=== PATIENT | male | born 1940 | race Caucasian/White ===

== ENCOUNTER → 2016-06-20 | Outpatient (CLI) | payer OTHER | LOC: FIMAGING 15:38 | PROVIDERS: ATTEND Emergency Medicine | DX: M25.552 Pain in left hip (principal); M79.605 Pain in left leg; M54.5 Low back pain ==

== ENCOUNTER 2017-03-11 08:38 | Emergency (ER) | payer OTHER ==
[2017-03-11 08:46] VITALS: TEMP 97.5
[2017-03-11] MEDS ORDERED: COCAINE HCL 4% 4 ML BTL TP ONE ×2 (08:51→08:52)
[2017-03-11] MEDS ORDERED: SILVER NITRATE APPLICATOR 1 APPL TP ONE ×2 (08:51→08:54)
[2017-03-11 09:11] LABS: % IMMATURE GRANULYOCYTES 0.2 % (0.0-1.1); ABSOLUTE IMMATURE GRANULOCYTES 0.01 10^3/uL (0.00-0.10); ADD DIFF? NO; ADD MORPH? NO; ADD SCAN? NO; ATYPICAL LYMPHOCYTE FLAG 0 (0-99); FRAGMENT RBC FLAG 0 (0-99); HEMATOCRIT 45.2 % (40.0-51.0); HEMOGLOBIN 15.9 g/dL (13.7-17.5); LEFT SHIFT FLG 0 (0-99); LIPEMIA HEMOLYSIS FLAG 90 (0-99); MEAN CELL HEMOGLOBIN 30.3 pg (27.9-34.1); MEAN CELL HEMOGLOBIN CONCENTR. 35.2 g/dL (32.4-36.7); MEAN CELL VOLUME 86.1 fL (81.5-99.8); MEAN PLATELET VOLUME 9.5 fL (8.7-11.7); PLATELET CLUMPS FLAG 10 (0-99); PLATELET COUNT 205 10^3/uL (150-400); RED BLOOD CELL COUNT 5.25 10^6/uL (4.40-6.38); RED CELL DISTRIBUTION WIDTH 15.7 % (11.5-15.2)
[2017-03-11 09:19] LABS: INR 1.01 (0.83-1.16); PROTIME(PATIENT) 13.5 SEC (12.0-15.0)
[2017-03-11 09:20] LABS: APTT 30.1 SEC (23.0-38.0)
--- NOTE | 2017-03-11 09:26 | EDPHY ---
H & P Stated Complaint: NOSE BLEED Source: Patient, Family (White) - Personal History Current Tetanus/Diphtheria Vaccine: Unsure Tetanus Vaccine Date: WITHIN LAST 5 YEARS - Medical/Surgical History Hx Asthma: No Hx Chronic Respiratory Disease: Yes Hx Diabetes: No Hx Cardiac Disease: Yes Hx Renal Disease: Yes Hx Cirrhosis: No Hx Alcoholism: No Hx HIV/AIDS: No Hx Splenectomy or Spleen Trauma: No Other PMH: als,htn,hypothyroid,gout, stents. afib, renal insufficiency,daniel, home 02,renal stents. - Social History Smoking Status: Never smoked HPI/ROS: HPI: This is a 76-year-old male presents with Chief Complaint: Nosebleed Location: Nose Quality: Bleeding Duration: Last night Signs and Symptoms: No digital trauma, + nasal mucosal dryness, no sneezing, no nasal congestion, no sinus pressure, no headache, no dizziness, no shortness of breath, no chest pain Timing: waxes and wane Severity: Moderate Context: Patient has a history of atrial fibrillation on aspirin and Plavix as well as DANIEL on home oxygen but denies using the machine last night presents with sudden onset, last night of right nare nose bleed that lasted approximately 30 min. Patient reports that put a humidified by the bed. He left approximately 8-10 hours without this is no lead reoccurring. While he was a shower this morning he had spontaneous reoccurrence of right nose bleed that was moderate in nature, and unable to be stopped with direct pressure. The bleeding lasted for over an hour so called EMS. EMS placed packing into bilateral nares and placed a nose clip for direct pressure. Upon arrival patient is complaining of drainage of blood in the back of his throat. He denies any digital trauma, headache, dizziness, shortness of breath, palpitations, chest. This is 1st episode of epistaxis. Denies easy bruising, petechiae. Modifying Factors: Direct pressure nasal packing by EMS Comment: ROS: see HPI Constitutional: No fever, no chills, no weight loss Eyes: No blurred vision Respiratory: No shortness of breath, no cough Cardiovascular: No chest pain Gastrointestinal: No nausea, no vomiting, no diarrhea Genitourinary: No dysuria Extremities: No myalgias Neurologic: No weakness, no numbness Skin: No rashes Hematologic: No bruising, + bleeding MEDICAL/SURGICAL/SOCIAL HISTORY: Medical/surgical history: als, htn, hypothyroid,gout, stents afib, renal insufficiency,daniel, home 02,renal stents. Social history: . Retired. CONSTITUTIONAL: Pleasant elderly white male, awake and alert, no obvious distress HEENT: Atraumatic and normocephalic, PERRL, EOMI. Tympanic membranes clear. Right nare: Unable to visualize mucosal berger due to bleeding. Left nare: Dried blood clot noted but no active bleeding. Posterior pharynx shows large clot. Oropharynx clear, no exudate and moist pink mucosa. Airway patent. No lymphadenopathy. No meningismus. Cardiovascular: Normal S1/S2, irregular rate, regular rhythm, without murmur rub or gallop. PULMONARY/CHEST: Symmetrical and nontender. Clear to auscultation bilaterally. Good air movement. No accessory muscle usage. ABDOMEN: Soft, nondistended, nontender, no rebound, no guarding, no peritoneal signs, no masses or organomegaly. No CVAT. EXTREMITIES: 2/2 pulses, strength 5/5, no deformities, no clubbing, no cyanosis or edema. NEUROLOGICAL: no focal neuro deficits. GCS 15. Speech clear. Ambulation and balance impaired chronically secondary to ALS. SKIN: Warm and dry, no erythema. no rash. Good capillary refill. (Sabine Feliciano) Constitutional: Initial Vital Signs Temperature (C) 36.4 C 03/11/17 08:42 Heart Rate 64 03/11/17 08:42 Respiratory Rate 16 03/11/17 08:42 Blood Pressure 163/70 H 03/11/17 08:42 O2 Sat (%) 90 L 03/11/17 08:42 O2 Delivery Mode Room Air Allergies/Adverse Reactions: No Known Allergies Allergy (Unverified 05/10/13 18:38) Home Medications: Medication Instructions Recorded Allopurinol [Allopurinol 300 MG 300 mg PO DAILY 11/30/12 (RX)] Aspirin [Aspirin 81mg (OTC)] 81 mg PO DAILY 11/30/12 Atorvastatin Calcium [Lipitor] 40 mg PO HS 11/30/12 Clopidogrel Bisulfate [Plavix (RX)] 75 mg PO DAILY 11/30/12 Furosemide [Lasix] 40 mg PO DAILY 11/30/12 Levothyroxine [Synthroid 112 mcg 112 mcg PO DAILY06 11/30/12 (RX)] Metoprolol Tartrate [Lopressor] 50 mg PO BID 11/30/12 Spironolactone [Aldactone 25 MG 25 mg PO BID@08,18 11/30/12 (RX)] Minoxidil [Minoxidil 10 mg (RX)] 20 mg PO DAILY 05/10/13 Minoxidil [Minoxidil 10 mg (RX)] 30 mg PO DAILY@1800 05/10/13 Testosterone IM [Testosterone 100 mg IM Q14D 05/10/13 100mg/ml IM inj (RX)] Testosterone [Androderm] 2 patch TP DAILY PRN 05/10/13 Medical Decision Making Procedures: Procedure: Epistaxis control. After verbal consent was obtained, the patient was not anesthetized. The anterior epistaxis was identified in the right Spencer. The patient was treated with cocaine and right rhino rocket with syringe filled to 5 mL. Approximately 1 hr later following the procedure, the patient was re-examined and the bleeding was well controlled. The patient tolerated the procedure well. The procedure was performed by myself. (Sabine Feliciano) ED Course/Re-evaluation: I discussed evaluated this patient with Sabine Feliciano This patient is on 2 antiplatelet agents. He has had intermittent nosebleeds since yesterday. After instilling cocaine solution and applying cauterization the bleeding has stopped. Will continue to observe the patient. If we need to will use rhino rocket. (Raj Lao) Labs, packing, chemical cauterization. Labs reviewed and show no significant anemia, coagulopathy. Packing was removed from left and right nare. Unable to visualize source of bleeding. Suction used to no avail. Cocaine was placed. Then rhino rocket was placed in the right nare intervention fill to 5 mL with immediate cessation of bleeding. Large clot noted on posterior pharynx was cleared with suction. Patient was able to rinse mouth with water and then drink ice cold water without difficulty. Patient closely monitored for 5 min without recurrence of posterior pharynx bleeding. Patient monitored for almost 4 hours in the emergency room; with resolution of bleeding. Patient stood up and denies dizziness, shortness of breath, chest pain. This patient was seen under the supervision of my secondary supervising physician. I evaluated care for this patient independently. Patient's presentation, labs/imaging, treatment and plan of care were discussed with secondary supervising physician. (Sabine Feliciano) Differential Diagnosis: Differential diagnosis includes but is not limited to nasal dryness due to home oxygen use, coagulopathy, nasal tumor, arteriovenous malformation. (Sabine Feliciano) - Data Points Laboratory Results: Laboratory Results 03/11/17 09:00 03/11/17 03/11/17 09:00 09:00 WBC 5.14 10^3/uL 10^3/uL (3.80-9.50) RBC 5.25 10^6/uL 10^6/uL (4.40-6.38) Hgb 15.9 g/dL g/dL (13.7-17.5) Hct 45.2 % % (40.0-51.0) MCV 86.1 fL fL (81.5-99.8) MCH 30.3 pg pg (27.9-34.1) MCHC 35.2 g/dL g/dL (32.4-36.7) RDW 15.7 % H % (11.5-15.2) Plt Count 205 10^3/uL 10^3/uL (150-400) MPV 9.5 fL fL (8.7-11.7) Neut % (Auto) 68.6 % % (39.3-74.2) Lymph % (Auto) 19.3 % % (15.0-45.0) [place] % (Auto) 8.0 % % (4.5-13.0) Eos % (Auto) 2.9 % % (0.6-7.6) Baso % (Auto) 1.0 % % (0.3-1.7) Nucleat RBC Rel Count 0.0 % % (0.0-0.2) Absolute Neuts (auto) 3.53 10^3/uL 10^3/uL (1.70-6.50) Absolute Lymphs (auto) 0.99 10^3/uL L 10^3/uL (1.00-3.00) Absolute Monos (auto) 0.41 10^3/uL 10^3/uL (0.30-0.80) Absolute Eos (auto) 0.15 10^3/uL 10^3/uL (0.03-0.40) Absolute Basos (auto) 0.05 10^3/uL 10^3/uL (0.02-0.10) Absolute Nucleated RBC 0.00 10^3/uL 10^3/uL (0-0.01) Immature Gran % 0.2 % % (0.0-1.1) Immature Gran # 0.01 10^3/uL 10^3/uL (0.00-0.10) PT 13.5 SEC SEC (12.0-15.0) INR 1.01 (0.83-1.16) APTT 30.1 SEC SEC (23.0-38.0) Medications Given: Discontinued Medications Cocaine HCl (Cocaine Hcl) 1 angel TP EDNOW ONE Stop: 03/11/17 08:53 Last Admin: 03/11/17 08:56 Dose: 1 angel Silver Nitrate/Potassium Nitrate (Silver Nitrate Applicator) 2 each TP EDNOW ONE Stop: 03/11/17 08:55 Last Admin: 03/11/17 08:56 Dose: 2 each Departure - Departure Disposition: Home, Routine, Self-Care Clinical Impression: Hx of snf use of blood thinners, Right-sided epistaxis Condition: Good Instructions: Nosebleed (ED) Additional Instructions: Nasal packing will need to remain for 72-96 hours. Please call ENT on Monday for follow-up appointment on Monday or Monday. Avoid blowing your nose or picking your nose for approximately 1 week. Please hold Aspirin and Plavix use for the next 3 days. If at any time your bleeding reoccurs and does not stop with direct pressure within 20 min, return to the emergency room immediately for re-evaluation. Referrals: Neda Gonzales MD [Medical Doctor] - As per Instructions
[2017-03-11 10:24] VITALS: BP 150/79; PULSE 66; RESP 18; O2SAT 92
== END 2017-03-11 10:45 | disposition home or self-care (01) ==
LOC: EDUNIT#
PROC: 2Y41X5Z Packing of Nasal Region using Packing Material (ICD-10-PCS; principal; 2017-03-11)
DX: R04.0 Epistaxis (principal); I10 Essential (primary) hypertension; Z95.5 Presence of coronary angioplasty implant and graft; Z79.82 Long term (current) use of aspirin; Z79.01 Long term (current) use of anticoagulants

== ENCOUNTER 2017-03-26 13:55 | Observation (INO) | payer OTHER ==
[2017-03-26] MEDS ORDERED: TRANEXAMIC ACID 1,000 MG/10 ML VIAL TP ONE (14:31)
[2017-03-26] MEDS ORDERED: OXYMETAZOLINE 30 ML NASAL SPRAY EACHNARE ONE (14:53)
[2017-03-26] MEDS ORDERED: SILVER NITRATE APPLICATOR 1 APPL TP ONE (14:54)
[2017-03-26 15:55] LABS: % IMMATURE GRANULYOCYTES 0.3 % (0.0-1.1); ABSOLUTE IMMATURE GRANULOCYTES 0.04 10^3/uL (0.00-0.10); ADD DIFF? NO; ADD MORPH? NO; ADD SCAN? NO; ATYPICAL LYMPHOCYTE FLAG 0 (0-99); FRAGMENT RBC FLAG 0 (0-99); HEMATOCRIT 38.9 % (40.0-51.0); HEMOGLOBIN 13.9 g/dL (13.7-17.5); LEFT SHIFT FLG 0 (0-99); LIPEMIA HEMOLYSIS FLAG 90 (0-99); MEAN CELL HEMOGLOBIN 30.4 pg (27.9-34.1); MEAN CELL HEMOGLOBIN CONCENTR. 35.7 g/dL (32.4-36.7); MEAN CELL VOLUME 85.1 fL (81.5-99.8); PLATELET CLUMPS FLAG 0 (0-99); PLATELET COUNT 291 10^3/uL (150-400); RED BLOOD CELL COUNT 4.57 10^6/uL (4.40-6.38); RED CELL DISTRIBUTION WIDTH 15.5 % (11.5-15.2)
[2017-03-26] MEDS ORDERED: fentaNYL 100 MCG/2 ML INJ IVP ONE ×2 (16:41→17:38)
[2017-03-26] MEDS ORDERED: fentaNYL 100 MCG/2 ML INJ ONE (17:39)
--- NOTE | 2017-03-26 17:41 | EDPHY ---
H & P Smoking Status: Never smoked Time Seen by Provider: 03/26/17 14:31 HPI/ROS: CHIEF COMPLAINT: Epistaxis HISTORY OF PRESENT ILLNESS: 77-year-old male presents to the emergency department by private vehicle with his with recurring epistaxis. The patient is on Plavix for cardiac stents. Over the last 2 weeks the patient has had at least 6 episodes of epistaxis. He was seen by Dr. Crescencio Matias 2 weeks ago and he had cauterization to the right nostril. They held his Plavix and then he restarted this 2 days ago. He took his a.m. dose today. About an hour and half prior to arrival he developed recurring epistaxis. He has no headache. He does not feel lightheaded. He states he otherwise feels "fine ". Denies chest pain or difficulty breathing. REVIEW OF SYSTEMS: Constitutional: No fever, no chills. Eyes: No double or blurry vision. ENT: Epistaxis as above. No sore throat. Respiratory: No cough, no shortness of breath. Cardiac: No chest pain. Gastrointestinal: No abdominal pain, vomiting or diarrhea. Genitourinary: No dysuria. Musculoskeletal: No neck or back pain. Skin: No rashes. Neurological: No headache. (KristieJulieth lafleur) Past Medical/Surgical History: ALS, hypertension, hypothyroidism, gout, atrial fibrillation, renal insufficiency, osteoarthritis (Rose Knoxgeni Umana) Social History: (Julieth Knox) Physical Exam: General Appearance: Alert, mild distress. Eyes: Pupils equal and round. Extraocular motions are all intact. ENT: No active bleeding noted in the right nostril. No active bleeding noted in the left nostril. Blood in the posterior pharynx noted. Respiratory: No wheezing, rhonchi, or rales, lungs are clear to auscultation. Cardiovascular: Regular rate and rhythm. Gastrointestinal: Abdomen is soft and nontender, no masses, no rebound or guarding, bowel sounds normal. Neurological: Alert and oriented x 3, cranial nerves II through XII grossly intact Skin: Warm and dry, no rashes. Musculoskeletal: Nontender to palpate along the cervical, thoracic or lumbar spine. Neck is supple. Extremities: Full range of motion and no peripheral edema. Psychiatric: Patient is oriented X 3, there is no agitation. (Julieth Knox) Constitutional: Initial Vital Signs Heart Rate 72 03/26/17 14:00 Respiratory Rate 20 03/26/17 14:00 Blood Pressure 192/88 H 03/26/17 14:00 O2 Sat (%) 91 L 03/26/17 14:00 O2 Delivery Mode Room Air O2 (L/minute) 2 Allergies/Adverse Reactions: No Known Allergies Allergy (Verified 03/26/17 14:13) Home Medications: Medication Instructions Recorded Allopurinol [Allopurinol 300 MG 300 mg PO DAILY 11/30/12 (RX)] Furosemide [Lasix 40 MG (*)] 40 mg PO DAILY 11/30/12 Metoprolol Tartrate [Lopressor 50 50 mg PO BID 11/30/12 mg (*)] Spironolactone [Aldactone 25 MG 25 mg PO BID@,18 11/30/12 (*)] Minoxidil [Minoxidil 10 mg (*)] 20 mg PO DAILY 05/10/13 Minoxidil [Minoxidil 10 mg (*)] 30 mg PO DAILY@1800 05/10/13 Testosterone IM [Testosterone 100 mg IM Q14D 05/10/13 100mg/ml IM inj (*)] Atorvastatin Calcium [Lipitor 20 20 mg PO HS 03/26/17 mg (*)] Levothyroxine [Synthroid 125 mcg 125 mcg PO DAILY06 03/26/17 (*)] Acetaminophen [Tylenol 325mg (*)] 650 mg PO Q4HRS PRN tab 03/27/17 MDM/Departure - MDM Procedures: Procedure: Epistaxis control. After verbal consent was obtained and no anterior epistaxis or source of bleeding identified in the nose was identified. The patient was treated with TXA soaked gauze in the right nostril . Following the procedure the patient was re-examined went and continued to have bleeding in the posterior pharynx without anterior epistaxis identified. (Julieth Knox) Medications Given: Discontinued Medications Allopurinol (Allopurinol) 300 mg PO DAILY GEORGE Stop: 09/23/17 08:59 Last Admin: 03/27/17 09:41 Dose: 300 mg Atorvastatin Calcium (Lipitor) 20 mg PO HS GEORGE Stop: 09/22/17 20:59 Last Admin: 03/26/17 20:08 Dose: 20 mg Fentanyl (Sublimaze) 50 mcg IVP EDNOW ONE Stop: 03/26/17 16:42 Last Admin: 03/26/17 16:45 Dose: 50 mcg Fentanyl (Sublimaze) 50 mcg IVP EDNOW ONE Stop: 03/26/17 17:39 Last Admin: 03/26/17 17:41 Dose: 50 mcg Furosemide (Lasix) 40 mg PO DAILY [facility] Stop: 09/23/17 08:59 Last Admin: 03/27/17 09:47 Dose: Not Given [facility] Stop: 09/23/17 05:59 Last Admin: 03/27/17 05:41 Dose: 125 mcg Metoprolol Tartrate (Lopressor) 50 mg PO BID [facility] Stop: 09/22/17 20:59 Last Admin: 03/27/17 09:41 Dose: 50 mg Minoxidil (Minoxidil) 20 mg PO DAILY [facility] Stop: 09/23/17 08:59 Last Admin: 03/27/17 09:42 Dose: 20 mg Morphine Sulfate (Morphine) 2 mg IVP EDNOW ONE Stop: 03/26/17 15:48 Last Admin: 03/26/17 15:50 Dose: 2 mg Morphine Sulfate (Morphine) 2 mg IVP EDNOW ONE Stop: 03/26/17 16:18 Last Admin: 03/26/17 16:21 Dose: 2 mg Oxycodone HCl (Oxycodone Ir) 5 - 10 mg PO Q4HRS PRN PRN Reason: Pain, Severe Able to Take PO Stop: 04/05/17 19:40 Last Admin: 03/27/17 09:42 Dose: 10 mg Oxymetazoline HCl (Afrin Nasal [place]) 2 sprays EACHNARE EDNOW ONE Stop: 03/26/17 14:54 Last Admin: 03/26/17 14:59 Dose: 2 sprays Silver Nitrate/Potassium Nitrate (Silver Nitrate Applicator) 1 each TP EDNOW ONE Stop: 03/26/17 14:55 Last Admin: 03/26/17 15:40 Dose: Not Given Spironolactone (Aldactone) 25 mg PO BID@ [facility] Stop: 09/23/17 07:59 Last Admin: 03/27/17 09:41 Dose: 25 mg Tranexamic Acid (Cyklokapron) 500 mg TP EDNOW ONE Stop: 03/26/17 14:32 Last Admin: 03/26/17 14:33 Dose: 500 mg ED Course/Re-evaluation: 1907: Patient has been seen by ENT. They recommend hospital admission for observation overnight. They really get the bleeding to stop here in the emergency room. He has Surgicel packing. I spoke with Dr. Palomares who agrees to admit the patient. Updated patient. ( Jose Gutierrez) 77-year-old male presents to the emergency department with recurring epistaxis. The patient had cauterization 2 weeks ago and restarted his Plavix 2 days ago and now has recurring epistaxis. The case was discussed with Dr. Jose Gutierrez, secondary supervising physician , who did not directly evaluate the patient but agrees with treatment and plan. Initially the patient had TXA soaked gauze placed in the right nostril and left for 10 min. I could not visualize in the anterior aspect of his nose any source of bleeding. He did however have continues bleeding in the posterior pharynx and was constantly spitting up some blood. The patient was kept on a monitor. He received 500 IV normal saline. Complete blood cell count was drawn and platelets are normal. Initially a long posterior rhino rocket was placed, however the patient did not tolerate this and asked that it was removed. I then removed this and placed an anterior rhino rocket inflated to 5 mL cyst. The patient tolerated this better, however continued to have bleeding. I spoke multiple times with the physician undertaker assistant, Erika, who was on-call with [facility]. She recommended that the posterior rhino rocket be placed and inflated to 10 mL speed. The anterior rhino rocket was deflated and removed. Posterior rhino rocket was placed in the right nostril. The patient did not tolerate this well. There was resistance as well as pain. This was inflated and the patient was observed over the next hour. The patient still continued to have ongoing bleeding. I called [facility] a back and they requested suction cautery with grounding pad be obtained from the operating room. Patient had an IV established and was given initially 4 mg of morphine total. This did not help his pain. He was then given 50 mcg of fentanyl IV. He was kept on pulse ox and was given nasal cannula oxygen the left nostril. Awaiting [facility] (Julieth Knox) - Depart Disposition: [facility] Inpatient Acute Clinical Impression: Epistaxis Condition: Good
[2017-03-26 17:50] LABS: ANION GAP 17 mEq/L (8-16); CALCIUM 9.7 mg/dL (8.5-10.4); CARBON DIOXIDE 26 mEq/l (22-31); CHLORIDE 101 mEq/L (97-110); CREATININE 1.6 mg/dL (0.7-1.3); GLOMERULAR FILTRATION RATE 42; GLUCOSE 133 mg/dL (70-100); POTASSIUM 4.3 mEq/L (3.5-5.2); SODIUM 144 mEq/L (134-144)
[2017-03-26] MEDS ORDERED: ONDANSETRON 4 MG/2 ML VIAL IVP PRN (19:00)
[2017-03-26] MEDS ORDERED: ONDANSETRON DISINTEGRATING 4 MG TAB PO PRN (19:00)
[2017-03-26] MEDS ORDERED: ACETAMINOPHEN 325 MG TAB PO PRN (19:00)
[2017-03-26 19:52] VITALS: RESP 16
[2017-03-26] MEDS: METOPROLOL TARTRATE 50 MG TAB PO SCH (20:08)
[2017-03-26] MEDS: oxyCODONE IR 5 MG TAB PO PRN (20:08)
--- NOTE | 2017-03-26 20:17 | GHP ---
[f rep st] HISTORY AND PHYSICAL DATE OF ADMISSION: 03/26/2017 CHIEF COMPLAINT: Epistaxis. HISTORY OF PRESENT ILLNESS: A 77-year-old male with a history of ALS and hypertension, as well as AF ib, who presents with complaints of recurrent nose bleed. The patient reports he did not have issues with nose bleeding prior to 2 weeks ago. Since that time, he has had 6 episodes of severe epistaxis . He has been seen twice in clinic by Dr. Matias, where he was cauterized in the right nostril at that time. He had his Plavix held, and it has since recurred multiple times. The patient is now in the emergency department with a recurrent bleed that has been difficult to control. ENT was called, and the patient was packed with Surgicel. The patient is reporting some pain related to the packing . Denies any chest pain. Denies shortness of breath. Denies lightheadedness. Denies abdominal dis comfort, nausea, vomiting, diarrhea, dysuria, arthralgias, and myalgias. PAST MEDICAL HISTORY: 1. ALS. 2. Hypertension. 3. Hypothyroidism. 4. Gout. 5. Atrial fibrillation. 6. Chronic kidney disease. 7. Osteoarthritis. SOCIAL HISTORY: The patient lives with his . Does not smoke, drink, or use illicit drugs. FAMILY HISTORY: Negative for ALS. REVIEW OF SYSTEMS: A 10-point review of systems is negative with the exception of that reported in t he HPI. PHYSICAL EXAMINATION: VITAL SIGNS: Blood pressure 121/76, heart rate 87, respiratory rate 20, satti ng 91% on room air, 36.7. GENERAL: This is a very pleasant-appearing, elderly male in no acute dist ress. HEENT: Notable for dried blood around the nares and dry mucous membranes. Eye exam is negati ve for any icterus. CARDIAC: The patient has a regular rate and rhythm. A systolic murmur is appre ciated. PULMONARY: Clear to auscultation bilaterally. GASTROINTESTINAL: Positive bowel sounds. T he abdomen is soft and nontender. MUSCULOSKELETAL: Negative for any lower extremity edema. SKIN: Exam is negative for any rashes. NEUROLOGIC: He is alert and oriented x3. PSYCHIATRIC: He is plea elda and cooperative on interview and examination. DATA: Telemetry, which I personally reviewed and interpreted, shows a sinus rhythm. LABORATORY: White count 12.3. Hematocrit 38.9--baseline most recently checked was 45.2. Sodium 144 . Creatinine 1.6, which is baseline. BUN is 40. ASSESSMENT AND PLAN: This is a 77-year-old male, presenting with epistaxis. 1. Acute, severe epistaxis. The patient was seen by ear, nose and throat surgery. He had successfu l Surgicel packing of his posterior nares. Currently, we have hemostasis. We will admit the patient for observation. Obviously holding his Plavix. Avoiding any oxygen by nasal cannula. We will alexia tor closely. Recheck labs in the morning. Expect ENT to follow. They will advise when they fell th e patient is safe for disposition. 2. Amyotrophic lateral sclerosis. The patient was diagnosed 6 years ago and has been doing quite we ll. We will continue supportive care. No need for PT/OT, as I suspect this will be a short stay. 3. Hypertension. We will continue the patient's home antihypertensives in the morning. 4. Gout. We will continue the patient's allopurinol. 5. Prophylaxis contraindicated in setting of acute epistaxis. 6. Diet regular. 7. Disposition. I expect less than 2 midnights. If we are able to maintain hemostasis overnight, t he patient should be a candidate for discharge in the morning after seen by ENT. I have discussed the case with the emergency room physician. The patient will be triaged to the [facility]-surgical floor for care. /[id number]/MODL
[2017-03-26] MEDS ORDERED: ATORVASTATIN CALCIUM 20 MG TAB PO SCH (21:00)
--- NOTE | 2017-03-26 22:57 | GCON ---
[f rep st] CONSULTATION Corrected report EMERGENCY ROOM CONSULTATION DATE OF CONSULTATION: 03/26/2017 IDENTIFYING DATA: This is a patient we are asked to see in the emergency room. CHIEF COMPLAINT: Epistaxis. HISTORY OF PRESENT ILLNESS: He has had a complex history of epistaxis. He has had 6 episodes of epistaxis over the last 2 weeks. He has been on Plavix and aspirin. He had a stent 10 years ago. He had stopped his Plavix for 3 days and was doing well. He started that up this morning and had bleeding again from the right. An anterior and posterior pack was placed, Rhino Rocket, in the ER without resolution of the epistaxis. PHYSICAL EXAM: GENERAL: He is in no distress. HEENT: Left side of the nose is examined with the nasal endoscope, and there is no bleeding noted. He has a Rhino Rocket in place, and that is taken out. The nose was examined thoroughly over the course of 45 minutes with the scope and an anterior head light. He had some excoriations from the packs. He did have some granulation tissue, possibly the source of the bleeding, or from the packing on the medial and the right middle turbinate. I was able to inject the middle turbinate with 1% lidocaine with 1:100,000 epinephrine and cauterize this with suction cautery. He did appear to have some bleeding lateral to the middle turbinate on the right. I watched this over the course of 10-15 minutes, and there was a slow ooze from that area. Due to discomfort, I was unable to get a suction cautery back there, but I was able to place a role of Surgicel lateral to the middle turbinate, and it appeared to clot off the bleeding. I did place more Surgicel medial to the middle turbinate as well as along the floor of the nose, along the septal spur. He was watched again for a total of an hour, and no active bleeding was noted. The nasopharynx was clear, and the oropharynx was clear. IMPRESSION: Epistaxis on the right. RECOMMENDATIONS: 1. Nasal endoscopic cauterization carried out as above, with packing and Surgicel as above. 2. We will keep him overnight to follow him. Certainly, if he has any more bleeding we are not going to be able to get any more done under local. He was getting fairly uncomfortable with the above. I spoke with him and his about potential to go to the operating room, or for embolization. They do not want to have any further packing, as he has been packed a number of times over the last couple of weeks, and so he may lean toward embolization if he has any further episodes. 3. He is on Plavix and aspirin, and they will consider holding that, given the problems he has had the last 2 weeks. They will discuss it with their photograph printer. We will certainly hold it while he is in the hospital, and they understand the risks, benefits, and alternatives of that. 4. Over 60 minutes was spent with the patient and his . /[id number]/MODL Leona worktype, 03/27/17, carlyle SULLIVAN
[2017-03-27 05:04] LABS: % IMMATURE GRANULYOCYTES 0.4 % (0.0-1.1); ABSOLUTE IMMATURE GRANULOCYTES 0.03 10^3/uL (0.00-0.10); ADD DIFF? NO; ADD MORPH? NO; ADD SCAN? NO; ATYPICAL LYMPHOCYTE FLAG 0 (0-99); FRAGMENT RBC FLAG 0 (0-99); HEMATOCRIT 32.7 % (40.0-51.0); HEMOGLOBIN 11.6 g/dL (13.7-17.5); LEFT SHIFT FLG 0 (0-99); LIPEMIA HEMOLYSIS FLAG 90 (0-99); MEAN CELL HEMOGLOBIN 30.6 pg (27.9-34.1); MEAN CELL HEMOGLOBIN CONCENTR. 35.5 g/dL (32.4-36.7); MEAN CELL VOLUME 86.3 fL (81.5-99.8); MEAN PLATELET VOLUME 9.4 fL (8.7-11.7); PLATELET CLUMPS FLAG 0 (0-99); PLATELET COUNT 239 10^3/uL (150-400); RED BLOOD CELL COUNT 3.79 10^6/uL (4.40-6.38); RED CELL DISTRIBUTION WIDTH 15.5 % (11.5-15.2)
[2017-03-27] MEDS: oxyCODONE IR 5 MG TAB PO PRN ×2 (05:44→09:42)
[2017-03-27] MEDS ORDERED: LEVOTHYROXINE 125 MCG TAB PO SCH (06:00)
[2017-03-27] MEDS ORDERED: SPIRONOLACTONE 25 MG TAB PO SCH (08:00)
[2017-03-27] MEDS ORDERED: MINOXIDIL 10 MG TAB PO SCH ×2 (09:00→18:00)
[2017-03-27] MEDS ORDERED: FUROSEMIDE 40 MG TAB PO SCH (09:00)
[2017-03-27] MEDS ORDERED: ALLOPURINOL 300 MG TAB PO SCH (09:00)
--- NOTE | 2017-03-27 09:24 | SOAPPROG ---
[facility] Progress Note Assessment/Plan: Assessment/Plan: 77 year old male with recurrent right-sided epistaxis, started again on after resuming Plavix. It was controlled by nasal endoscopic cautery with Surgicel packing on 03/26/[address] Ortega. He is doing well, remains off plavix/aspirin. Recommend that he avoid nasal canula. From ENT perspective he is okay to discharge today. We plan to follow up as needed. If he bleeds again, he will likely need to be taken to OR for surgical control or have IR consult for embolization. Reviewed again with patient nasal moisture, afrin/pressure if he bleeds again. 03/27/17 09:27 Subjective: Patient reports he is doing well, only spit up a drop of blood overnight. He has no concerns. Objective: Patient awake, alert, in no acute distress. Vital signs stable. HEENT: Atraumatic, no bleeding noted right or left nostrils. Surgicel remains in place right nostril. No blood noted at posterior oropharynx. Resp: Breathing well. Cardio: RRR. Neuro: Alert, oriented x 3. Skin: Warm, dry, no rashes. Vital Signs Temp Pulse Resp BP Pulse Ox 36.3 C 63 16 159/65 H 96 03/27/17 07:39 03/27/17 07:39 03/27/17 07:39 03/27/17 07:39 03/27/17 07:39 Laboratory Results 03/27/17 04:39 03/26/17 03/27/17 03/28/17 05:59 05:59 05:59 Intake Total 900 Balance 900 - Pending Discharge Pending Discharge Within 24 Hours: Yes Pending Discharge Date: 03/27/17 Pending Discharge Time: 11:00 ICD10 Worksheet Patient Problems: Problems Problem Status Onset Epistaxis Acute CHF (congestive heart failure) Acute
[2017-03-27] MEDS: METOPROLOL TARTRATE 50 MG TAB PO SCH (09:41)
[2017-03-27 11:28] VITALS: BP 126/55; PULSE 58; TEMP 98.8; O2SAT 94
--- NOTE | 2017-03-27 14:47 | ASDISCHSUM ---
Discharge Information Plan Status:Home with No Needs Medically Cleared to Leave:03/26/2017 Discharge Date:03/27/2017 01:23 PM D/C Disposition: ADT D/C Disposition:Home, Routine, Self-Care Projected Discharge Date:03/27/2017 12:00 AM Transportation at D/C: Discharge Delay Reason: Follow-Up Date:03/27/2017 12:00 AM Discharge Slot: Final Diagnosis: Placement Information Patient Contact Information Contact Name:CAPO Relationship: Address:[address] [place] City:[place] Alternate Phone: State/Zip Code:[place] [address] Email: Financial Information Financial Class:Medicare Advantage Plans Primary Plan Desc:[facility] [employer]AGE PLANS Primary Plan Number:[id number] Secondary Plan Desc: Secondary Plan Number: Assessment Information Intervention Information Intervention Type:*SOTO-Signed Date of Service:03/27/2017 10:58 AM Patient Type:Observation Staff Member:Linh Jordan Hours: Discipline: Severity: Comment:
--- NOTE | 2017-03-28 02:28 | GDS ---
[f rep st] DISCHARGE SUMMARY DISCHARGE DIAGNOSES: Epistaxis. CONSULTATIONS: Ear, Nose and Throat. PHYSICAL EXAM: GENERAL: The patient is alert. VITAL SIGNS: Afebrile at 37.1, pulse 58, respirator y rate 16, blood pressure is 126/55, he is saturating 94% on 2.5 L. I have seen and evaluated the mable fall on the day of discharge. HOSPITAL COURSE: The patient is a 77-year-old male who presented to the emergency room with complain ts of nose bleeding. He was evaluated in the emergency room and received cauterization as well as pa cking from Ear, Nose and Throat. His Plavix has been discontinued. It is recommended that he remain off Plavix and aspirin for a total of 7 days. He will follow up with his primary geotechnical operating engineer, Dr. Thelma Blanton, for further recommendations regarding this anticoagulation. The patient has had several episodes of epistaxis in the last year and it is recommended that if this recurs, he should have surg ical intervention. I reviewed his disposition with the Ear, Nose and Throat provider, who is in agre ement with his discharge plan. He will follow up in the outpatient setting as needed, and he will fo llow up with his primary geotechnical operating engineer, Dr. Thelma Blanton, regarding his anticoagulating medication. The re are no pending studies. DISCHARGE MEDICATIONS: Please refer to EMR form. Again, I have discontinued the patient's Plavix an d aspirin at the time of disposition. FOLLOWUP: Will be with his primary care physician, as well as Dr. Thelma Blanton and Ear, Nose and Throa t as needed. /[id number]/MODL
== END 2017-03-27 13:23 | disposition home or self-care (01) ==
LOC: F3E 19:40
PROVIDERS: ADMIT Hospitalist; ATTEND Hospitalist
PROC: 2Y41X5Z Packing of Nasal Region using Packing Material (ICD-10-PCS; principal; 2017-03-26)
DX: R04.0 Epistaxis (principal); G12.21 Amyotrophic lateral sclerosis; I12.9 Hypertensive chronic kidney disease with stage 1 through stage 4 chronic kidney disease, or unspecified chronic kidney disease; E03.9 Hypothyroidism, unspecified; I48.91 Unspecified atrial fibrillation; N18.9 Chronic kidney disease, unspecified; M19.90 Unspecified osteoarthritis, unspecified site
CPT/HCPCS: 30905; G0378; J3010; 96374

== ENCOUNTER → 2017-07-25 | Outpatient (CLI) | payer OTHER | LOC: FIMAGING 12:02 | PROVIDERS: ATTEND Family Medicine | DX: M51.36 Other intervertebral disc degeneration, lumbar region (principal); M51.37 Other intervertebral disc degeneration, lumbosacral region; M25.551 Pain in right hip; G12.21 Amyotrophic lateral sclerosis; I70.0 Atherosclerosis of aorta; Z99.3 Dependence on wheelchair ==

== ENCOUNTER → 2017-10-12 | Outpatient (CLI) | payer OTHER | LOC: FIMAGING 18:52 | PROVIDERS: ATTEND Physician Assistant | DX: M51.16 Intervertebral disc disorders with radiculopathy, lumbar region (principal); M51.35 Other intervertebral disc degeneration, thoracolumbar region; M51.37 Other intervertebral disc degeneration, lumbosacral region; M48.061 Spinal stenosis, lumbar region without neurogenic claudication; M48.07 Spinal stenosis, lumbosacral region ==

== ENCOUNTER → 2018-05-29 | Outpatient (CLI) | payer OTHER | LOC: BMCIMAGING 11:51 | PROVIDERS: ATTEND Family Medicine | DX: R52 Pain, unspecified (principal); W19.XXXA Unspecified fall, initial encounter ==